=== PATIENT | male | born 1945 | race Hispanic/Latino ===

== ENCOUNTER 2021-02-03 09:41 | Outpatient (CLI) | payer MEDICARE ==
[2021-02-03 21:48] LABS: SARS-CoV-2 PCR by NAA Not Detected (NotDetected)
== END 2021-02-03 09:42 | disposition home or self-care (01) ==
LOC: CSHLAB 09:41
PROVIDERS: ATTEND Otolaryngology Plastic Surgery within the Head & Neck
DX: Z20.822 Contact with and (suspected) exposure to COVID-19 (principal); E04.1 Nontoxic single thyroid nodule
CPT/HCPCS: 87635; U0003; U0005

== ENCOUNTER 2023-11-25 11:41 | Outpatient (CLI) | payer MEDICARE | END 2023-11-25 11:42 | disposition home or self-care (01) | LOC: CSHMRI 11:41 | PROVIDERS: ATTEND Urology | DX: R97.20 Elevated prostate specific antigen [PSA] (principal) | CPT/HCPCS: 82565 ==

== ENCOUNTER 2024-02-29 10:00 | Outpatient (CLI) | payer MEDICARE | END 2024-02-29 10:01 | disposition home or self-care (01) | LOC: CSHMRI 10:00 | PROVIDERS: ATTEND Radiology Radiation Oncology | DX: R97.20 Elevated prostate specific antigen [PSA] (principal); N40.2 Nodular prostate without lower urinary tract symptoms | CPT/HCPCS: 72197; 82565 ==